=== PATIENT | male | born 1970 | race Caucasian/White ===

== ENCOUNTER 2020-08-09 06:49 | Day surgery (SDC) | payer OTHER, SELFPAY ==
[2020-08-05 08:41] VITALS: BMI 32.1
--- NOTE | 2020-08-05 09:04 | HO.ANESPROP2 ---
Documented by User: Marisa Bridges 08/05/20 09:07 HPI - Anesthesia Eval Consult details Narrative: 49yo M for EGD and Colonoscopy [facility] Past Medical History Medical History GERD (gastroesophageal reflux disease) Premature atrial contraction Social History Social History Smoking Status: Never smoker Use of substances other than those prescribed or required for medical reasons: No Advance Directives: No Advance Directives Information Provided: No Advance Directives on File: No Recently lost weight without trying: No Meds Allergies Allergy/AdvReac Type Severity Reaction Status Date / Time No Known Allergies Allergy Verified 08/04/20 15:12 Home Medications Medication Instructions Recorded Confirmed Type No Known Home Meds 08/04/20 08/04/20 History Exam Exam Date and Time: August 05, 2020903 Height,Weight and Vital Signs: Height 5 ft 11 in Weight 104.326 kg BMI 32.1 Assessment and Plan Assessment Anesthesia Assessment: Chart Reviewed Documented by User: Chelsea Thornton 08/09/20 08:07 [facility] Past Medical History Medical History GERD (gastroesophageal reflux disease) Premature atrial contraction Family History Family history of problems with anesthesia: No Surgical History History of Problems with Anesthesia: Unobtainable Social History Social History Smoking Status: Never smoker Use of substances other than those prescribed or required for medical reasons: No Advance Directives: No Advance Directives Information Provided: No Advance Directives on File: No Recently lost weight without trying: No Meds Allergies Allergy/AdvReac Type Severity Reaction Status Date / Time No Known Allergies Allergy Verified 08/04/20 15:12 Home Medications Medication Instructions Recorded Confirmed Type No Known Home Meds 08/04/20 08/04/20 History Exam Height,Weight and Vital Signs: Vital Signs Temp Pulse Resp BP Pulse Ox 08/09/20 07:29 97.7 F 64 16 126/87 98 Airway Mallampati Class: I TM Dist: >3cm Neck ROM: Full Heart: RRR Lungs: CTAB Assessment and Plan Assessment Anesthesia Assessment: Anesthesia Plan Discussed and Consent Obtained Final Anesthetic Review NPO: Yes Intake Type: Clears Intake Timing: Greater than 8 hours and Solids Intake Timing: Greater than 8 hours ASA Class: II Final Preanesthetic Review: No Changes in Pt Med Stat, Meds & Allergies Reviewed, Consent Obtained/Reviewed, Med/Surg/Anes Hx Reviewed and Anes Risks/Benef Reviewed Patient Risk: Low Procedure Risk: Low Anesthetic Plan Anesthetic Plan: MAC: Disposition: Standard PACU
[2020-08-09 07:29] VITALS: BP 126/87; PULSE 64; RESP 16; TEMP 36.5; O2SAT 98
[2020-08-09] MEDS: Lactated Ringers 1,000 ML 100 ML IVCONT (07:45)
--- NOTE | 2020-08-09 08:02 | MHC.SHP ---
Surgical H&P Section B Chief Complaint: SCREENING,GERD Details of Present Illness: see h and p no changes Relevant Family History (Specify if Yes): No Relevant Social History: None Present Medications: see Short Stay Collaborative assessment History of Previous Operations: No relevant previous surgery Allergies: Allergies Allergy/AdvReac Type Severity Reaction Status Date / Time No Known Allergies Allergy Verified 08/04/20 15:12 Review of Systems Sugical H&P ROS: Negative: Constitution, Cardiovascular, Respiratory, Neurological, Psychiatric, Hem-Onc, Allergic/Immunologic, Gastrointestinal, Genitourinary, Musculoskeletal, Integumentary, Endocrine and Eyes/Ears/Nose/Throat Exam Surgical H&P Exam: Normal: HEENT, Normal: Heart, Normal: Lungs, Normal: Extremities, Normal: Abdomen, Normal: Skin and Normal: Neurological Plan Diagnosis/Plan: Unchanged Patient has been examined and remains a candidate for the planned procedure
--- NOTE | 2020-08-09 08:47 | PM.OP ---
Brief Operative Note Date of procedure: 08/09/20 Pre-op diagnosis: gerd screening Post-op diagnosis: other (gerd with esophagitis, colopn polyp) Procedure: egd, colonosocpy Anesthesia: MAC Surgeon: Jase Wayne Estimated blood loss (mL): 0 Pathology: other (antrum , egj bniopsies, rectgal polyp) Condition: stable Disposition: PACU
[2020-08-09 08:49] VITALS: BP 109/65; PULSE 55; RESP 16; TEMP 36.6; O2SAT 98
[2020-08-09 09:04] VITALS: BP 109/79; PULSE 61; RESP 18; O2SAT 97
--- NOTE | 2020-08-09 09:09 | HO.POSTANES ---
Post Anesthesia Evaluation Post Anesthesia Evaluation Vital Signs: Vital Signs Temp Pulse Resp BP Pulse Ox 08/09/20 09:04 61 18 109/79 97 08/09/20 08:49 98 F 55 16 109/65 98 08/09/20 07:29 97.7 F 64 16 126/87 98 Anesthesia: Monitored Mental Status: Awake Pain Control: Satisfactory Nausea/Vomiting: None Hydration: Adequate Anesthesia-Related Issues: No Anes. Related Issues
--- NOTE | 2020-08-09 09:52 | OP_ITS ---
SURGEON: Jase Wayne MD INDICATIONS: 1. Gastroesophageal reflux disease. 2. Colon cancer screening. PREOPERATIVE DIAGNOSIS: POSTOPERATIVE DIAGNOSIS: PROCEDURE PERFORMED: ESTIMATED BLOOD LOSS: COMPLICATIONS: ANESTHESIA: ASSISTANTS: SPECIMENS: PROCEDURES PERFORMED: 1. Upper endoscopy with biopsy. 2. Colonoscopy to the terminal ileum with biopsy. MEDICATIONS: Monitored anesthesia care. DESCRIPTION OF PROCEDURE: The history and physical performed. The risks and benefits of the procedure were explained to the patient. Informed consent was obtained. The patient was placed in the left lateral decubitus position. The Olympus video gastroscope was introduced into the esophagus, stomach, and duodenum. Examination was performed and the scope was removed. He was repositioned for colonoscopy. A digital rectal exam was performed and was found to be normal. The Olympus pediatric video colonoscope was introduced into the rectum and advanced to the cecum without difficulty. The cecum was identified by transillumination, palpation, and identification of ileocecal valve. Examination was performed and the scope was removed. He tolerated both procedures well and was taken to recovery area in stable condition. FINDINGS: UPPER ENDOSCOPY: Esophagus: The esophagus was remarkable for mild distal esophagitis with an approximately 1 cm area of possible Schreiber's esophagus. Biopsies were obtained from the mucosa. There were no raised or mass lesions. Stomach: Stomach showed no evidence of masses, ulcers, or polyps. Antral biopsies were obtained. Duodenum: The bulb and second portion were normal. COLONOSCOPY: The terminal ileum was normal. The visualized colonic mucosa was within normal limits. The quality of the prep was good. In the rectum, was a less than 5 mm sessile polyp, which was removed with biopsy forceps. A few diverticula were seen in the sigmoid. Retroflexed examination showed some small internal hemorrhoids. IMPRESSION: 1. Gastroesophageal reflux disease with esophagitis. 2. Colon polyp. RECOMMENDATION: Follow up the biopsy results. MD PK Ballard/PIPER / [id number]
== END 2020-08-09 10:02 | disposition home or self-care (01) ==
PROVIDERS: Internal Medicine Gastroenterology; PCP Internal Medicine; Visit Provider Anesthesiology
PROC: (CPT 45380; principal; 2020-08-09 08:10)
DX: Z12.11 Encounter for screening for malignant neoplasm of colon (principal); K62.1 Rectal polyp; K21.00 Gastro-esophageal reflux disease with esophagitis, without bleeding; K22.70 Barrett's esophagus without dysplasia
CPT/HCPCS: 45380; 43239; 88305; 88342; J3010

== ENCOUNTER 2022-11-20 06:34 | Day surgery (SDC) | payer OTHER, SELFPAY ==
--- NOTE | 2022-11-19 12:47 | P.CONAN_ITS ---
Documented by User: Marsia Bridges NP 11/19/22 12:47 HPI - Anesthesia Eval Consult details Narrative: 52yo M for Upper Endoscopy with [facility] Past Medical History Medical History GERD (gastroesophageal reflux disease) Premature atrial contraction Family History Family history of problems with anesthesia: No Surgical History Surgical History (Updated 11/20/22 @ 06:46 by Samantha Tyson RN) Hx of colonoscopy Hx of endoscopy History of Problems with Anesthesia: Unobtainable Social History Social History Patient Tobacco Use Status: Never used Tobacco Are you DNR?: No Advance Directives: No Advance Directives Information Provided: Yes Meds Allergies Allergy/AdvReac Type Severity Reaction Status Date / Time No Known Allergies Allergy Verified 08/04/20 15:12 Home Medications Medication Instructions Recorded Confirmed Last Taken Type famotidine 10 mg tablet (Pepcid AC) 10 mg PO BID 11/19/22 11/19/22 11/19/22 History fexofenadine 180 mg tablet 180 mg PO DAILY 11/19/22 11/19/22 11/19/22 History (Madelaine Allergy) Exam Exam Date and Time: November 19, 2022 1247 Assessment and Plan Assessment Anesthesia Assessment: Chart Reviewed Final Anesthetic Review Family History of Problems with Anesthesia: No History of Problems with Anesthesia: Unobtainable Documented by User: Tamara Jimenez MD 11/20/22 08:02 [facility] Past Medical History Medical History GERD (gastroesophageal reflux disease) Premature atrial contraction Surgical History Surgical History (Updated 11/20/22 @ 06:46 by Samantha Tyson RN) Hx of colonoscopy Hx of endoscopy History of Problems with Anesthesia: No Social History Social History Patient Tobacco Use Status: Never used Tobacco Are you DNR?: No Advance Directives: No Advance Directives Information Provided: Yes Meds Allergies Allergy/AdvReac Type Severity Reaction Status Date / Time No Known Allergies Allergy Verified 08/04/20 15:12 Home Medications Medication Instructions Recorded Confirmed Last Taken Type famotidine 10 mg tablet (Pepcid AC) 10 mg PO BID 11/19/22 11/19/22 11/19/22 History fexofenadine 180 mg tablet 180 mg PO DAILY 11/19/22 11/19/22 11/19/22 History (Madelaine Allergy) Exam Airway Mallampati Class: II TM Dist: >3cm Neck ROM: Full Heart: rrr Lungs: cta Assessment and Plan Assessment Anesthesia Assessment: Anesthesia Plan Discussed Final Anesthetic Review History of Problems with Anesthesia: No NPO: Yes ASA Class: II Final Preanesthetic Review: No Changes in Pt Med Stat, Meds/Allgs Chart Reviewed, Consent Obtained/Reviewed and Anes Risks/Benef Reviewed Patient Risk: Low Procedure Risk: Low Anesthetic Plan Anesthetic Plan: MAC: and Agree w/ Assess. and Plan Disposition: Standard PACU
[2022-11-20 06:14] VITALS: BMI 33.5
[2022-11-20 06:37] VITALS: BP 151/97; PULSE 68; RESP 18; TEMP 36.8; O2SAT 98; BMI 33.5
[2022-11-20] MEDS: Lactated Ringers 1,000 ML 100 ML IVCONT (06:59)
--- NOTE | 2022-11-20 07:25 | MHC.SHP ---
Pre-Procedural Eval Section A Date of Service: 11/20/22 Section B Chief Complaint: Schreiber's esophagus without dysplasia Details of Present Illness: see H&P no changes Relevant Family History (Specify if Yes): No Relevant Social History: None Present Medications: see Short Stay Collaborative assessment Medical History: No relevant PMH History of Previous Operations: No relevant previous surgery Allergies: Allergies Allergy/AdvReac Type Severity Reaction Status Date / Time No Known Allergies Allergy Verified 08/04/20 15:12 Review of Systems Sugical H&P ROS: Negative: Constitution, Cardiovascular, Respiratory, Neurological, Psychiatric, Hem-Onc, Allergic/Immunologic, Gastrointestinal, Genitourinary, Musculoskeletal, Integumentary, Endocrine and Eyes/Ears/Nose/Throat Exam Surgical H&P Exam: Normal: HEENT, Normal: Heart, Normal: Lungs, Normal: Extremities, Normal: Abdomen, Normal: Skin and Normal: Neurological Plan Diagnosis/Plan: Unchanged I have reviewed the history and physical and performed a pertinent physical examination on my patient. No changes have occurred unless specified. Time Spent With Patient Time: Total time managing care of this patient today ____ minutes.
--- NOTE | 2022-11-20 07:59 | PM.OP ---
Brief Operative Note Date of Service: 11/20/22 Pre-op diagnosis: barretts esophagus Post-op diagnosis: same Procedure: EGD Surgeon: Jase Wayne Anesthesia: MAC Was an Fitting Supervisor used for this Procedure?: No Estimated blood loss (mL): 2 Pathology: other Condition: stable Disposition: PACU
[2022-11-20 08:00] VITALS: BP 133/93; PULSE 57; RESP 16; TEMP 36.6; O2SAT 98
--- NOTE | 2022-11-20 08:12 | OP_ITS ---
SURGEON: Jase Wayne MD INDICATIONS: Schreiber's esophagus. PREOPERATIVE DIAGNOSIS: POSTOPERATIVE DIAGNOSIS: PROCEDURE PERFORMED: Upper endoscopy with biopsy. ESTIMATED BLOOD LOSS: COMPLICATIONS: ANESTHESIA: Monitored anesthesia care. ASSISTANTS: SPECIMENS: DESCRIPTION OF PROCEDURE: A history and physical was performed. The procedure was performed on 11/20/2022. The Olympus video gastroscope was introduced into the esophagus, stomach, and duodenum. Examination was performed, and the scope was removed. He tolerated the procedure well and was taken to recovery in stable condition. FINDINGS: Esophagus: The esophagus showed an approximately 1 cm area of Schreiber esophagus, just above the EG junction, extending from 35 to 36 cm. There were no raised lesions or ulcerated areas. Brushings were obtained for WATS analysis and biopsies were then obtained at 36 and 35 cm, in all 4 quadrants. Stomach: The stomach showed no evidence of masses, ulcers, or polyps. Duodenum: The bulb and second portion were normal. IMPRESSION: Schreiber's esophagus. RECOMMENDATION: Follow up the biopsy results. MD PK Ballard/COREYL / [id number] MTDD
[2022-11-20 08:18] VITALS: BP 135/80; PULSE 60; RESP 16; O2SAT 98
[2022-11-20 08:32] VITALS: BP 142/89; PULSE 62; RESP 16; O2SAT 97
== END 2022-11-20 09:09 | disposition home or self-care (01) ==
PROVIDERS: PCP Internal Medicine; Visit Provider Internal Medicine Gastroenterology
PROC: 0DJ08ZZ Inspection of Upper Intestinal Tract, Via Natural or Artificial Opening Endoscopic (ICD-10-PCS; CPT 43235; principal; 2022-11-20 07:30)
DX: K22.70 Barrett's esophagus without dysplasia (principal); K21.9 Gastro-esophageal reflux disease without esophagitis; Z79.899 Other long term (current) drug therapy
CPT/HCPCS: 43239; 88305